=== PATIENT | male | born 1960 | race Caucasian/White ===

== ENCOUNTER 2018-06-17 07:59 | Emergency (ER) | payer OTHER ==
--- OUTSIDE RECORDS SUMMARY | 2018-06-17 08:09 | XMS REPORT | Continuity of Care Document ---
:1960 External Reference #:[id number] Author Name Veronica Navarro Care Team Providers Name Role Phone Sara Sandoval MD Primary Care Physician Unavailable Payers Date Identification Numbers Payment Provider Subscriber Policy Number: [id number] Manuel Canseco PayID: [id number] [address] [place] [address] Expires: 2017 Policy Number: [id number] Jaxson Canseco PayID: [id number] [address] [place] [address] Expires: 2016 Policy Number: [id number] Manuel Canseco Group Name: [id number] [address] PayID: [id number] [place] [address] Advance Directives Description No Information Available Problems Date Description Provider Status Onset: 09/01/2016 Cervical spondylosis without myelopathy Nasir Rushing M.D. Active Onset: 06/24/2015 Unspecified sprain of left shoulder Larry Blanco M.D. Active joint, subsequent encounter Family History Date Family Member(s) Observation Comments General Diabetes General Cancer Mother Hypertension Social History Type Date Description Comments Sex Unknown Occupation Currently Working Occupation Construction ETOH Use consumes 7 beers per week Recreational Drug Use Denies Drug Use Tobacco Use Start: Unknown End: Unknown Patient is a former smoker Smoking Status Reviewed: 06/02/18 Patient is a former smoker Allergies, Adverse Reactions, Alerts Description No Known Drug Allergies Medications Medication Date Status Form Strength Qnty SIG Indications Ordering Provider Naprosyn 09/01/ Active Tablets 500mg 60tabs 1 by M47.22 Nasir Segundo mouth Сергей, twice a M.D. day after meals Naproxen // Active Tablets 250mg 1 tablet Unknown 0000 by mouth twice a day as needed pain, with foods Loratadine / Active Tablets 10mg 1 by Unknown 0000 mouth every day Fluticasone / Active Suspension 50mcg/Act 2 sprays Unknown Propionate 0000 each nostril daily as needed Ibuprofen 00/ Active Capsules 200mg as needed Unknown 0000 Immunizations Description No Information Available Vital Signs Date Vital Result Comment 06/02/2018 2:54pm Height 75 inches 6'3" Weight 265.00 lb Heart Rate 78 /min BP Systolic Sitting 132 mmHg BP Diastolic Sitting 88 mmHg Respiratory Rate 16 /min BMI (Body Mass Index) 33.1 kg/m2 09/01/2016 2:33pm Height 75 inches 6'3" Weight 273.00 lb Heart Rate 78 /min BP Systolic Sitting 142 mmHg BP Diastolic Sitting 90 mmHg Pain Level 7 BMI (Body Mass Index) 34.1 kg/m2 06/24/2015 4:05pm Height 75 inches 6'3" Weight 270.00 lb Heart Rate 61 /min BP Systolic 127 mmHg BP Diastolic 77 mmHg BMI (Body Mass Index) 33.7 kg/m2 Results Description No Information Available Procedures Date Code Description Status 03/08/2018 88932 Destruction Of Benign Lesions Any Method 1-14 lesions Completed 06/24/2014 28927 Repair Hernia Inguinal > 5Yrs, Reducible Completed Encounters Type Date Location Provider Dx Diagnosis Office Visit 03/08/2018 [facility] Dermatology Armando Mcdonald MD L20.84 Intrinsic 9:00a (allergic) eczema B35.1 Tinea unguium D23.71 Oth benign neoplasm skin/ right lower limb, including hip D23.62 Oth benign neoplasm skin/ left upper limb, inc shoulder A63.0 Anogenital (venereal) warts R23.8 Other skin changes Z78.9 Other specified health status Office Visit 09/01/2016 Neurosurgery Nasir M47.22 Other spondylosis 2:50p Services Of Melinda Rushing M.D. with radiculopathy, cervical region Office Visit 06/24/2015 Sports Medicine Larry S43.402D Unspecified sprain 3:40p Of Melinda Blanco M.D. of left shoulder Ririe joint, subs encntr M75.42 Impingement syndrome of left shoulder Office Visit 11/06/2007 Neurosurgery Shorty JKeaton 722.0 Intervertebral Disc 2:40p Services Of Melinda Arredonod M.D. Displacement Cervical W/O Myelopathy Office Visit 06/13/2006 Neurosurgery Shorty Bill 722.0 Intervertebral Disc 2:00p Services Of Melinda Arredondo M.D. Displacement Cervical W/O Myelopathy Office Visit 04/29/2006 Neurosurgery Shorty Bill 722.0 Intervertebral Disc 3:30p Services Of Melinda Arredondo M.D. Displacement Cervical W/O Myelopathy Plan of Treatment 06/02/2018 - Nasir Alvarez M.D.M54.17 Radiculopathy, lumbosacral regionFollow up:Please obtain labwork from last few months from Dr. Sandoval's office. PRN
[2018-06-17] MEDS ORDERED: HYDROcodone/ACETAMIN 5-325 MG* 1 TAB PO ONE (08:16)
[2018-06-17] MEDS ORDERED: Gabapentin CAP(*) 100 MG PO ONE (08:16)
[2018-06-17] MEDS ORDERED: Naproxen TAB* 250 MG PO ONE (08:16)
--- NOTE | 2018-06-17 08:17 | ED ---
Upper Extremity Pain - HPI Summary HPI Summary: This patient is a 58 year old M presenting to [facility] with a chief complaint of L shoulder pain that does not radiate that began after drilling a hole in concrete on 06/15/2018. The patient rates the pain 8/10 in severity. Symptoms aggravated by movement of the shoulder. Symptoms alleviated by nothing. Patient reports clicking noise when moving elbow. Patient denies weakness in L hand/ wrist/forearm and numbness in L hand/wrist/forearm. Patient is left handed. Patient denies injuring the L shoulder previously. - History of Current Complaint Chief Complaint: EDExtremityUpper Stated Complaint: NEEDS TO HAVE LEFT SHOULDER LOOKED AT PER PT Time Seen by Provider: 06/17/18 08:03 Hx Obtained From: Patient Onset/Duration: Started Days Ago, Still Present Timing: Constant Severity Initially: Severe Severity Currently: Severe Pain Location: Shoulder Aggravating Factor(s): Movement Alleviating Factor(s): Nothing Associated Signs & Symptoms: Positive: Other - Positive clicking noise when moving elbow. Negative weakness in L hand/wrist/forearm and numbness in L hand/ wrist/forearm - Allergies/Home Medications Allergies/Adverse Reactions: Allergies Allergy/AdvReac Type Severity Reaction Status Date / Time No Known Allergies Allergy Verified 03/22/18 16:15 PMH/Surg Hx/FS Hx/Imm Hx Previously Healthy: No Endocrine/Hematology History: Denies: Hx Diabetes Cardiovascular History: Denies: Hx Hypertension, Hx Pacemaker/ICD History: Denies: Hx Renal Disease Sensory History: Reports: Hx Contacts or Glasses - CONTACTS Denies: Hx Hearing Aid Opthamlomology History: Reports: Hx Contacts or Glasses - CONTACTS Psychiatric History: Denies: Hx Panic Disorder - Surgical History Surgery Procedure, Year, and Place: LEFT WRIST [place] [facility] [place] Anesthesia Reactions: No Infectious Disease History: No Infectious Disease History: Denies: Traveled Outside the [place] in Last 30 Days - Family History Known Family History: Positive: Other - father bladder cancer, mother colon cancer and dm - Social History Occupation: Employed Full-time Lives: Alone Alcohol Use: Daily Alcohol Amount: EVERY OTHER DAY Hx Substance Use: No Substance Use Type: Reports: None Hx Tobacco Use: Yes Smoking Status (MU): Heavy Every Day Tobacco Smoker Type: Cigarettes Amount Used/How Often: 14 CIGS/DAY Length of Time of Smoking/Using Tobacco: 20 YRS Have You Smoked in the Last Year: Yes Review of Systems Positive: Other - Positive L shoulder pain and clicking noise when moving elbow. Neurological: Other - Negative weakness in L hand/wrist/forearm and numbness in L hand/wrist/forearm All Other Systems Reviewed And Are Negative: Yes Physical Exam - Summary Physical Exam Summary: Appearance: Well appearing, no pain distress Skin: warm, dry, reflects adequate perfusion Head/face: normal Eyes: EOMI, JASON ENT: mucous membranes moist Neck: supple, non-tender Respiratory: CTA, breath sounds present Cardiovascular: RRR, pulses symmetrical Abdomen: non-tender, soft Bowel Sounds: present Musculoskeletal: normal, strength/ROM intact. No limitation of ROM of L shoulder. No tenderness on clavicle. No sag. No crepitus. Neuro: normal, sensory motor intact, A&Ox3 Triage Information Reviewed: Yes Vital Signs On Initial Exam: Initial Vitals Temp Pulse Resp BP Pulse Ox 97.7 F 75 18 144/97 97 06/17/18 08:01 06/17/18 08:01 06/17/18 08:01 06/17/18 08:01 06/17/18 08:01 Vital Signs Reviewed: Yes Diagnostics - Vital Signs Vital Signs Temp Pulse Resp BP Pulse Ox 06/17/18 08:01 97.7 F 75 18 144/97 97 - Laboratory Lab Statement: Any lab studies that have been ordered have been reviewed, and results considered in the medical decision making process. - Radiology Left Shoulder XR Radiology Interpretation Completed By: Radiologist Summary of Radiographic Findings: Left shoulder XR reveals, radiologist, no evidence of fracture. ED physician has reviewed this radiology report. Re-Evaluation - Re-Evaluation First Eval Re-Evaluation Time: 10:08 Change: Unchanged Comment: Discussed results and plan of care with the patient. Course/Dx - Course Course Of Treatment: Nurse's notes reviewed. Patient with left shoulder soreness after using a hammer drill the other day. He is neurologically intact and his range of motion is good. He has no weakness or numbness. X-rays negative. He was given oral medications with some improvement. He will continue on same follow-up with primary care, orthopedics. - Diagnoses Differential Diagnosis/HQI/PQRI: Positive: Contusion, Fracture (Closed), Hematoma, Strain, Sprain Provider Diagnoses: Shoulder strain Discharge - Sign-Out/Discharge Documenting (check all that apply): Patient Departure - Discharge home Patient Received Moderate/Deep Sedation with Procedure: No - Discharge Plan Condition: Improved Disposition: HOME Prescriptions: Cyclobenzaprine TAB* [Flexeril 10 MG TAB*] 10 mg PO TID PRN #15 tab PRN Reason: muscle pain Naproxen [Naproxen 500 mg tab] 500 mg PO BID PRN #12 tablet PRN Reason: Pain Patient Education Materials: Shoulder Sprain (ED) Referrals: Sara Jauregui MD [Primary Care Provider] - Renan Phelan MD [Medical Doctor] - Additional Instructions: Rest, ice for comfort. Prescribed medications. Cyclobenzaprine can cause drowsiness, do not drive while taking. Call your family doctor and orthopedist to schedule prompt follow-up. - Billing Disposition and Condition Condition: IMPROVED Disposition: Home - Attestation Statements Document Initiated by Scribe: Yes Documenting Scribe: Brigette Lovelace Provider For Whom Scribe is Documenting (Include Credential): Dr. Carlos Blevins MD Scribe Attestation: Brigette Barr scribed for Dr. Carlos Blevins MD on 06/17/18 at 1110. Scribe Documentation Reviewed: Yes Provider Attestation: The documentation as recorded by the Brigette hess accurately reflects the service I personally performed and the decisions made by , Dr. Carlos Blevins MD Status of Scribe Document: Viewed
[2018-06-17 10:21] VITALS: BP 135/90
== END 2018-06-17 10:20 | disposition home or self-care (01) ==
LOC: ED 07:59
DX: S46.912A Strain of unspecified muscle, fascia and tendon at shoulder and upper arm level, left arm, initial encounter (principal); M25.512 Pain in left shoulder; F17.210 Nicotine dependence, cigarettes, uncomplicated; X50.9XXA Other and unspecified overexertion or strenuous movements or postures, initial encounter; Y92.9 Unspecified place or not applicable
CPT/HCPCS: 99282; A9270-GY